=== PATIENT | female | born 1985 | race Caucasian/White ===

== ENCOUNTER 2019-09-19 17:33 | Emergency (ER) | payer OTHER, SELFPAY ==
[2019-09-19 17:35] VITALS: BP 122/73; PULSE 73; RESP 18; TEMP 36.4; O2SAT 96; BMI 31.8
[2019-09-19] MEDS: proMETHazine 25 MG/ML Syringe 12.5 MG IV (18:41)
[2019-09-19] MEDS: 0.9% Normal Saline 1,000 ML 1000 ML IV (18:41)
[2019-09-19] MEDS: Famotidine 200 MG/20 ML MDV 20 MG in 0.9% Normal Saline (Pres. free 8 ML 300 MG IV (18:41)
[2019-09-19 18:43] LABS: Absolute Lymphocyte Count 1.19 X10^3/uL (0.83-4.51); Absolute Neutrophil Count 14.9 X10^3/uL (2.0-7.7); Basophil# 0.03 X10^3/uL; Basophil% 0.2 % (0-1); Eosinophil# 0.02 X10^3/uL; Eosinophils% 0.1 % (0-5); Hematocrit 39.8 % (37-47); Hemoglobin 13.2 g/dL (12.0-15.0); Lymphocyte # 1.19 X10^3/ul (4.0); Lymphocyte % 7.2 % (19-41); Mean Corp Hgb Conc 33.2 g/dL (32-36); Mean Corpuscular Hgb 28.7 pg (27.0-32.0); Mean Corpuscular Volume 86.5 fL (81-99); Mean Platelet Vol. 10.9 fl (6.2-12.0); Monocyte# 0.35 X10^3/uL; Monocyte% 2.1 % (0-10); NRBC Flagged by Analyzer 0 % (0-5); Neutrophil # 14.94 X10^3/uL (2.7-7.7); Platelet Count 220 K/mm3 (150-450); RBC Distribution Width CV 13.1 % (11.6-14.6); RBC Distribution Width SD 40.9 fl (35.1-43.9); White Blood Count 16.6 K/mm3 (4.4-11.0)
--- NOTE | 2019-09-19 18:47 | ED.VIS.GI ---
History of Present Illness Chief Complaint: Nausea/Vomiting Informant: Patient - Abdominal Pain/Flank Pain Onset: Today Context: Gradual Onset Timing: Continuous Quality: Burning Location: Epigastric Relieved by: Nothing - Nausea/Vomiting/Emesis GI Symptom: Nausea, Vomiting Onset: Today Quality: Nonbilious. Negative for: Blood streaks, Coffee ground, Hematemesis Severity: Severe - Diarrhea/Melena/Hematochezia GI Symptom: Negative for: Diarrhea, Melena, Hematochezia Associated Symptoms: Negative for: Dysuria, Frequency, Hematuria LMP: Narrative: Patient is a 33-year-old female with history of IBS presenting with nausea and vomiting. Patient is currently 15-1/2 weeks . She has had some nausea and mild vomiting throughout her but nothing this severe. She states morning when she woke up she felt very nauseous. She has vomited about 8 times. She states she is not throwing up every 30 minutes. She is not able to eat or drink anything. She feels that she is dehydrated. She does not have a cyst abdominal pain. She states she is been mildly constipated but this is normal for her as she has IBS. She denies any chest pain, shortness of breath or difficulty breathing. She denies any flulike illness. She denies any sick contacts. She is not having any vaginal bleeding, abnormal discharge or lower abdominal pain. Past Medical History - Allergies and Home Meds Allergies/Adverse Reactions: Allergies No Known Allergies Allergy (Verified 09/19/19 17:34) Primary Care Physician: Mary Rodriguez DO [STAFF PHYSICIAN] - Smoking Status: Never smoker Review of Systems General: Denies: Chills, Fever, Sweats Eyes: Denies: Visual changes - bilaterally, Diplopia ENT: Denies: Rhinorrhea, Sore throat Cardiovascular: Denies: Chest pain, Palpitations Respiratory: Denies: Dyspnea, Cough, Dyspnea on exertion Gastrointestinal: Reports: Nausea, Vomiting. Denies: Abdominal pain, Diarrhea, Melena, Hematochezia Genitourinary: Denies: Dysuria, Hematuria, Frequency Musculoskeletal: Denies: Back pain, Extremity Pain Skin: Denies: Rash, Wounds Neurological: Denies: Headache, Weakness, Numbness Physical Exam Vital Signs/Narrative: Vital Signs Temp Pulse Resp BP Pulse Ox 09/19/19 17:35 97.5 F L 73 18 122/73 H 96 Inital Vital Signs reviewed: Yes General: Well nourished, Well developed, No Acute Distress Head: Normocephalic, Atraumatic Eyes: Perrl, EOMI ENT: Moist mucous membranes, No rhinorrhea Neck: Supple, Nontender Cardiovascular: Regular rate, Regular rhythm, No murmurs Respiratory: No distress, CTA bilaterally, Chest nontender Abdomen: Soft, Nontender, Nondistended, Normal bowel sounds. Negative for: Guarding, Rebound tenderness Back: Nontender, Normal Inspection Extremities: Nontender, No edema Skin: Normal color, No rash Neurological: Alert, Oriented x3, Cranial nerves II-XII grossly intact, Normal Strength, Normal Sensation Psychological: Normal affect, Normal Mood Diagnostic/Tx/Re-eval Laboratory Data 09/19/19 09/19/19 09/19/19 18:10 18:10 19:47 WBC 16.6 H RBC 4.60 Hgb 13.2 Hct 39.8 MCV 86.5 MCH 28.7 MCHC 33.2 RDW Std Deviation 40.9 RDW Coeff of Thompson 13.1 Plt Count 220 MPV 10.9 Immature Gran % (Auto) 0.400 Neut % (Auto) 90.0 H Lymph % (Auto) 7.2 L Levy % (Auto) 2.1 Eos % (Auto) 0.1 Baso % (Auto) 0.2 Absolute Neuts (auto) 14.9 H Absolute Lymphs (auto) 1.19 Nucleated RBC % 0 Sodium 138 Potassium 4.1 Chloride 106 Carbon Dioxide 25.0 Anion Gap 7 BUN 9 Creatinine 0.70 Estim Creat Clear Calc 105.01 Est GFR (MDRD) Af Amer 123 Est GFR (MDRD) Non-Af 102 BUN/Creatinine Ratio 12.9 Glucose 98 Calcium 9.2 Total Bilirubin 0.40 AST 17 ALT 24 Alkaline Phosphatase 87 Total Protein 7.6 Albumin 3.3 Globulin 4.3 H Albumin/Globulin Ratio 0.8 L Lipase 105 Urine Color Yellow Urine Clarity Sl. Cloudy Urine pH 6.0 Ur Specific [place] 1.015 Urine Protein Negative Urine Glucose (UA) Normal Urine Ketones 150 H Urine Occult Blood Negative Urine Nitrite Positive H Urine Bilirubin Negative Urine Urobilinogen Normal Ur Leukocyte Esterase 25 H Urine RBC 0-5 SEEN Urine WBC 0-5 SEEN Ur Squamous Epith Cells 0 SEEN Urine Bacteria 2+ Urine Mucus 0 SEEN - Medical Decision Making Patient is 15 weeks and presenting with nausea and vomiting. She does not have abdominal pain. She appears nontoxic in no acute distress. Abdomen is soft and nontender. She does not have a gallbladder. I do not suspect appendicitis. I do not think abdominal imaging is indicated at this time. Patient symptoms seem to just come on today. She is otherwise well-appearing. CBC and BMP are largely unremarkable. She does have a mild leukocytosis but this might be reactive from her vomiting. Urinalysis does show 150 ketones. Patient is given a total of 2 L of IV fluid in the emergency room as well asIV Phenergan and Pepcid for her symptoms. On reevaluation she is feeling better. Patient is not have any urinary symptoms on repeat evaluation this is a specifically. Urinalysis does show bacteria as well as some contamination nitrates. Urine culture will be sent. Labs are reviewed again after patient is discharged. At this time I will call in a prescription for Keflex for presumed UTI. ED Disposition - Plan for ED Patient: Disposition: Home or Assisted Living Diagnosis: Dehydration, Nausea and vomiting during prior to 22 weeks gestation, UTI (urinary tract infection) Instructions: VOMITING (6y-Adult) Prescriptions: Cephalexin [Keflex] 500 mg PO Q12 #10 cap Transmission Status: Pending to [id number] proMETHazine suppository [Phenergan Suppository] 25 mg RECTAL Q6H PRN PRN #6 suppos. PRN Reason: Nausea Prescription Printed Ondansetron [Zofran Odt] 4 mg PO Q8H PRN PRN #12 tab PRN Reason: Nausea Prescription Printed Referrals: Mary Rodriguez DO [STAFF PHYSICIAN] -
[2019-09-19 18:55] LABS: ALB/GLOB Ratio 0.8 RATIO (0.9-2.4); AST(SGOT) 17 U/L (15-37); Alanine Aminotransfer ALT/SGPT 24 U/L (13-56); Albumin, Serum 3.3 g/dL (3.2-5.0); Alkaline Phosphatase 87 U/L (45-117); Anion Gap 7 (5-15); BUN 9 mg/dL (7-18); BUN/Creat Ratio 12.9 RATIO (10-20); Calcium,Total 9.2 mg/dL (8.5-10.1); Chloride 106 mmol/L (98-107); EST Glomerular Filtration Rate 102 mL/min (>60); Est Glom Filt Rate - Afr Amer 123 mL/min (>60); Estimated Creatinine Clearance 105.01 ml/min; Globulin 4.3 g/dL (2.2-4.2); Glucose 98 mg/dL (74-106); Lipase 105 U/L (73-393); Potassium 4.1 mmol/L (3.5-5.1); Protein, Total 7.6 g/dL (6.4-8.2); Sodium Level 138 mmol/L (136-145)
[2019-09-19 19:53] LABS: Mucous, Urine 0 SEEN /hpf (<or=2+); Squamous Epithelial Cells - UA 0 SEEN /hpf (5-10)
[2019-09-19 19:54] LABS: Color, Urine Yellow (Yellow); Glucose, Dipstick Normal (Normal); Leukocyte Esterase-Dipstick 25 /ul (Negative); Nitrite-Dipstick Positive (Negative); Occult Blood-Urine Negative /ul (Negative); Protein-Dipstick Negative (Negative); Specific Gravity, Urine 1.015 (1.002-1.030); Urine Bilirubin Dipstick Negative (Negative); Urine Clarity Sl. Cloudy (Clear); Urine Urobilinogen Normal (Normal)
[2019-09-19 19:56] LABS: Ketone-Dipstick 150 mg/dl (Negative)
[2019-09-19 20:00] LABS: Bacteria 2+ /hpf (None Seen); Red Blood Cells-Urine 0-5 SEEN /hpf (0-5); White Blood Cells 0-5 SEEN /hpf (0-5)
[2019-09-19] MEDS: 0.9% Normal Saline 1,000 ML 999 ML IV (20:20)
[2019-09-19 20:36] VITALS: BP 112/66; PULSE 55; O2SAT 100
[2019-09-19 21:44] VITALS: BP 107/64; PULSE 83; RESP 16; O2SAT 99
== END 2019-09-19 21:45 | disposition home or self-care (01) ==
PROVIDERS: Emergency Provider Emergency Medicine
DX: O21.1 Hyperemesis gravidarum with metabolic disturbance (principal); O23.42 Unspecified infection of urinary tract in pregnancy, second trimester; B96.89 Other specified bacterial agents as the cause of diseases classified elsewhere; Z3A.15 15 weeks gestation of pregnancy
CPT/HCPCS: 80053; 81001; 83690; 85025; 87086; 87088; 96361; 96374; 96375; 99283; J7030; A4216; J3490

== ENCOUNTER 2020-02-06 10:40 | Outpatient (CLI) | payer OTHER, SELFPAY ==
[2020-02-06 11:00] VITALS: BMI 39.8
[2020-02-06 11:03] VITALS: BP 108/71; PULSE 76
[2020-02-06 11:04] VITALS: BP 108/71; PULSE 81; TEMP 37.1; O2SAT 97
[2020-02-06 13:16] LABS: Hematocrit 37.2 % (37-47); Hemoglobin 12.4 g/dL (12.0-15.0); Mean Corp Hgb Conc 33.3 g/dL (32-36); Mean Corpuscular Hgb 30.2 pg (27.0-32.0); Mean Corpuscular Volume 90.7 fL (81-99); Mean Platelet Vol. 10.4 fl (6.2-12.0); Platelet Count 203 K/mm3 (150-450); RBC Distribution Width CV 13.2 % (11.6-14.6); RBC Distribution Width SD 43.6 fl (35.1-43.9); White Blood Count 15.1 K/mm3 (4.4-11.0)
[2020-02-06 13:38] LABS: Fibrinogen 650 mg/dl (203-444)
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
== END 2020-02-06 14:45 | disposition home or self-care (01) ==
LOC: WPOUT 10:48 → WP 10:48
PROVIDERS: Referring Provider Obstetrics & Gynecology; Visit Provider Obstetrics & Gynecology
DX: Z04.1 Encounter for examination and observation following transport accident (principal)
CPT/HCPCS: 36415; 59025; 59050; 85027; 85384; 99218; G0378

== ENCOUNTER → 2020-02-28 10:19 | Outpatient (CLI) | payer OTHER, SELFPAY ==
[2020-02-06 11:00] VITALS: BMI 39.8
== END ==
PROVIDERS: Referring Provider Obstetrics & Gynecology; Visit Provider Obstetrics & Gynecology
DX: Z11.59 Encounter for screening for other viral diseases (principal)
CPT/HCPCS: 87635; 94799; U0003

== ENCOUNTER 2020-03-04 13:00 | Inpatient (IN) | payer OTHER, SELFPAY ==
[2020-03-04 13:21] VITALS: BMI 40.1
[2020-03-04 14:08] LABS: Absolute Lymphocyte Count 1.82 X10^3/uL (0.83-4.51); Absolute Neutrophil Count 10.2 X10^3/uL (2.0-7.7); Basophil# 0.03 X10^3/uL; Basophil% 0.2 % (0-1); Eosinophil# 0.13 X10^3/uL; Hematocrit 35.7 % (37-47); Lymphocyte # 1.82 X10^3/ul (4.0); Lymphocyte % 14.1 % (19-41); Mean Corp Hgb Conc 33.6 g/dL (32-36); Mean Corpuscular Hgb 30.1 pg (27.0-32.0); Mean Corpuscular Volume 89.5 fL (81-99); Mean Platelet Vol. 10.3 fl (6.2-12.0); Monocyte% 4.7 % (0-10); NRBC Flagged by Analyzer 0 % (0-5); Neutrophil # 10.21 X10^3/uL (2.7-7.7); Neutrophil % 79.3 % (47-70); Platelet Count 209 K/mm3 (150-450); RBC Distribution Width CV 13.1 % (11.6-14.6); RBC Distribution Width SD 42.7 fl (35.1-43.9); Red Blood Count 3.99 M/mm3 (4.2-5.4); White Blood Count 12.9 K/mm3 (4.4-11.0)
[2020-03-04] MEDS: Lactated Ringers 1,000 ML 50 ML IV ×2 (14:41→21:47)
[2020-03-04] MEDS: miSOPROStol 25 MCG TABLET VAGINAL ×2 (15:16→20:39)
[2020-03-04 16:06] VITALS: BP 122/75; TEMP 36.3
[2020-03-04 16:07] VITALS: PULSE 67; O2SAT 99
[2020-03-04 19:24] VITALS: BP 122/81; PULSE 78
[2020-03-04 20:53] VITALS: TEMP 36.6
[2020-03-04 20:54] VITALS: BP 125/75; PULSE 78
[2020-03-05] VITALS (59 sets, daily range): BP systolic 107–166; BP diastolic 55–88; PULSE 51–127; TEMP 36.2–37.3; O2SAT 82–100
[2020-03-05] MEDS: miSOPROStol 25 MCG TABLET VAGINAL (00:49)
[2020-03-05] MEDS: Lactated Ringers 500 ML 999 ML IV ×4 (06:50→15:15)
[2020-03-05] MEDS: Oxytocin 30 units/NS 500 ml 30 UNITS/500 ML IV.SOLN IV (07:27)
[2020-03-05] MEDS: 0.9% Normal Saline Single 100 ML IV.SOLN. IY (08:24)
--- NOTE | 2020-03-05 08:35 | HP.PCM_ITS ---
- Problem List (1) Advanced maternal age (AMA) in Status: Acute (2) Positive GBS test Status: Acute (3) History of anxiety Status: Acute (4) History of depression Status: Acute (5) History of asthma Status: Acute (6) History of ITP Status: Acute (7) History of loop electrical excision procedure (LEEP) Status: Acute (8) Raynauds disease Status: Acute History Date of Admission: 03/04/20 Final RADHA: 03/08/20 Gestational age: 39 Weeks and 4 Days History of this : This is a 34 year-old, G [1], P [0], at 39 weeks gestational age. Presented to office yesterday for routine visit and NST. Non reactive strip and decision for induction of labor. complicated by AMA. Cytotec throughout the night for cervical ripening. Resting in bed and comfortable. Mild cramping. at bedside. Allergies No Known Allergies Allergy (Verified 02/06/20 10:56) Home Medications: Home Medications Cholecalciferol (Vitamin D3) [Vitamin D3] 5,000 mg PO DAILY 02/06/20 Doxylamine Succinate [Nighttime Sleep-Aid] 25 mg PO DAILY 02/06/20 Mecobalamin [B-12] 5,000 mcg PO DAILY 02/06/20 Dha mg PO DAILY 03/04/20 Smoking Status: Never smoker Alcohol: None Substance Use Type: Sleep Aides Number of Fetus(es): 1 NST - FHR Rate Baby A Baseline: 135 Variability:: Minimal Accelerations:: None Decelerations:: None FHR Category:: Category II Uterine Activity:: Irregular History Past Pregnancies: Past Pregnancies Delivery Date Name GA/ Weeks Outcome Route Wt Infant Sex Labor Length Anesthesia Delivery Location Provider FOB Labs: Mom's Problem List Problem Status Onset Code Advanced maternal age (AMA) in Acute Positive GBS test Acute B95.1 History of anxiety Acute Z86.59 History of depression Acute Z86.59 History of asthma Acute Z87.09 History of ITP Acute Z86.2 History of loop electrical excision procedure (LEEP) Acute Z98.890 Raynauds disease Acute I73.00 Mom's Labs & Results 03/04/20 03/04/20 13:45 13:45 WBC 12.9 H RBC 3.99 L Hgb 12.0 Hct 35.7 L MCV 89.5 MCH 30.1 MCHC 33.6 RDW Std Deviation 42.7 RDW Coeff of Thompson 13.1 Plt Count 209 MPV 10.3 Immature Gran % (Auto) 0.700 Neut % (Auto) 79.3 H Lymph % (Auto) 14.1 L [place] % (Auto) 4.7 Eos % (Auto) 1.0 Baso % (Auto) 0.2 Absolute Neuts (auto) 10.2 H Absolute Lymphs (auto) 1.82 Nucleated RBC % 0 Blood Type A POSITIVE Antibody Screen NEGATIVE Course Did the patient receive Yes care? Labs Blood Type: A RH: POSITIVE RPR/VDRL/Syphilis Nonreactive Rubella status Immune HbSAg Negative Date Done: 08/15/19 Chlamydia Negative Gonorrhea Negative HIV/AIDS Non-Reactive Group B Strep: Positive Current Obstetrical History Gestational Diabetes No Incompetent Cervix No Infertility No IUGR No Macrosomia No Hypertension/Pre-eclampsia No Placenta Previa/Abruption No PTL/PROM No Uterine anomaly No Oligohydramnios No Polyhydramnios No Multiple gestation No Past Medical History Asthma Yes: uses inh with exercise Diabetes No Hypertension No Heart disease No Mitral valve prolapse No Neurologic/Seizure disorder/ Yes: hx of migraines Migraines Kidney disease No Liver disease No Varicosities No Clotting disorders/Hx of DVT Yes: hx of itp as child Thyroid Dysfunction No Other medical diseases No Psychiatric disorders No Major trauma No Abnormal PAP smear Yes: hx of hpv Sleep apnea No Mammogram in the last 2 years No Social History Marital Status: Alleged father Hector Hx Smoking No Smoking Status Never smoker Substance Use Type Sleep Aides What date/time did you last night time sleep aid use any of the above? Have you had any previous 0 inpatient or outpatient treatment Expected Infant Delivery Method: Spontaneous Vaginal Review of Systems Constitutional: Denies: Chills, Fever, Weight Change HEENT: Denies: Head Aches, Sinus Congestion, Sinus Drainage Cardiovascular: Denies: Chest Pain, Palpitations Respiratory: Denies: Cough, Shortness of breath at rest, Sputum production Gastrointestinal: Denies: Abdominal Pain, Nausea, Vomiting Genitourinary: Denies: Dysuria Musculoskeletal: Denies: Joint Pain, Joint Tenderness Skin: Denies: Rash, Wounds Neurological: Denies: Numbness, Tingling, Focal weakness Psychiatric: Denies: Anxiety, Depression, Homicidal Ideations, Suicidal Ideations Hematologic/ Lymphatic: Denies: Easy Bruising, Easy Bleeding Physical Exam Vitals: Vital Signs Temp Pulse BP Pulse Ox 98.6 F 55 L 132/77 H 98 03/05/20 07:16 03/05/20 08:30 03/05/20 08:30 03/05/20 07:16 General: Alert, Oriented x3, Cooperative HEENT: Atraumatic, Normocephalic Cardiovascular: Regular rate, Regular Rhythm, No murmurs Lungs: Clear to auscultation, Normal air movement, No rhonchi, No wheeze Abdomen: Bowel Sounds Present, Gravid Extremities:: No edema Neurological: Deep Tendon Reflexes 2+/4 and Symmetrical. Negative for: Clonus APPLICATION CONSULTANT: Normal external genitalia Estimated gestational size: Appropriate for gestational size Presentation: Cephalic Cervix Dilation (cm): 1 - hernandez bulb inserted into cervix without difficulty. Patient tolerated well. Station: -2 Effacement (%): 50 Assessment/Plan All Active Problems Advanced maternal age (AMA) in (Acute) Positive GBS test (Acute) History of anxiety (Acute) History of depression (Acute) History of asthma (Acute) History of ITP (Acute) History of loop electrical excision procedure (LEEP) (Acute) Raynauds disease (Acute) This is a 34 year-old, G [1], P [0], at 39 weeks gestational age. A: Induction of Labor AMA Category 2 FHT P: 1) Admit to labor and delivery 2) Cytotec for cervical ripening then hernandez with Pitocin started. 3) IV labs, EFM, TOCO 4) Requesting epidural for pain management 5) collaborative physician and updated on patient status 6) COVID test negative 7) GBS positive-IV prophylaxis started 8) Declines LARC immediate PP.
[2020-03-05] MEDS: Lactated Ringers 1,000 ML 50 ML IV (10:47)
[2020-03-05] MEDS: fentaNYL-bupivacaine (epidural) 100 ML BAG EPIDURAL ×2 (14:11→18:23)
--- NOTE | 2020-03-05 14:39 | PCM.PN.OB ---
Patient Problems: Active and Suspected Problems Advanced maternal age (AMA) in (Acute) Positive GBS test (Acute) History of anxiety (Acute) History of depression (Acute) History of asthma (Acute) History of ITP (Acute) History of loop electrical excision procedure (LEEP) (Acute) Raynauds disease (Acute) Subjective: Resting in bed on left side, comfortable with epidural. Objective: FHT 135, moderate variability, accels TOCO: Every 2-4 minutes, moderate Cervix: 5cm/70%/-1 IBOW AROM for moderate amount of clear fluid, patient tolerated well. - Physical Exam Vitals/I&O's: Vital Signs Temp Pulse BP Pulse Ox 98.4 F 67 108/55 L 95 03/05/20 13:41 03/05/20 14:27 03/05/20 14:26 03/05/20 14:27 Weight: 248 lb 6 oz Body Mass Index (BMI) 40.1 Intake and Output for Last 24 Hours 03/03/20 03/04/20 03/05/20 23:59 23:59 23:59 Intake Total 355 / 355 2980.06 / 2980.06 Output Total 200 / 200 Balance 155 / 155 2980.06 / 2980.06 Laboratory Results 03/04/20 13:45: Blood Type A POSITIVE, Antibody Screen NEGATIVE Current Medications Acetaminophen (Tylenol) 325 - 650 mg PO Q4H PRN PRN PRN Reason: Pain Score 1-3/10 Al Hydroxide/Mg Hydroxide (Mylanta Ii) 15 - 30 ml PO Q4H PRN PRN PRN Reason: INDIGESTION Citric Acid/Sodium Citrate (Bicitra) 30 ml PO X1 PRN PRN Reason: Section Ephedrine Sulfate () 10 mg IV Q10M PRN PRN Reason: hypotension Ephedrine Sulfate () 10 mg IM Q30M PRN PRN Reason: hypotension Fentanyl Citrate (Sublimaze (100mcg Ampule)) 25 - 50 mcg IV Q2H PRN PRN PRN Reason: Pain Score 4-10/10 Fentanyl/Bupivacaine/Sodium Chlor () 0 ml EPIDURAL UD JANE; Protocol Lactated Ringer's () 500 mls @ 999 mls/hr IV .Q31M PRN PRN Reason: Epidural Last Admin: 03/05/20 13:15 Dose: 999 mls/hr Documented by: Lactated Ringer's () 500 mls @ 999 mls/hr IV .Q31M PRN PRN Reason: Corrective Measures Last Infusion: 03/05/20 07:35 Dose: Infused Documented by: Lactated Ringer's () 1,000 mls @ 50 mls/hr IV .Q20H JANE Last Admin: 03/05/20 10:47 Dose: 50 mls/hr Documented by: Oxytocin/Sodium Chloride () 30 units in 500 mls @ 2 mls/hr IV .Q250H JANE Last Infusion: 03/05/20 13:15 Dose: 14 mls/hr Documented by: Penicillin G Potassium/Dextrose (Penicillin G Potassium) 3 mu in 50 mls @ 100 mls/hr IV Q4H JANE Last Infusion: 03/05/20 13:32 Dose: Infused Documented by: Naloxone HCl 4 mg/ Dextrose 504 mls @ 0 mls/hr IV .Q0M PRN; Protocol PRN Reason: To maintain Resp. rate >10 Nalbuphine HCl (Nubain) 5 mg IV Q3H PRN PRN PRN Reason: ITCHING Naloxone HCl (Narcan) 0.02 mg IV Q1M PRN PRN Reason: RR< 10 AND PT UNRESPONSIVE Ondansetron HCl (Zofran) 4 mg IV Q4H PRN PRN PRN Reason: NAUSEA Prochlorperazine Edisylate (Compazine Iv) 10 mg IV Q6H PRN PRN PRN Reason: NAUSEA Sodium Chloride () 10 - 40 ml IV X1 PRN PRN Reason: SALINE FLUSH Medical Necessity - Tobacco Use Smoking Status: Never smoker Assessment/Plan All Active Problems Advanced maternal age (AMA) in (Acute) Positive GBS test (Acute) History of anxiety (Acute) History of depression (Acute) History of asthma (Acute) History of ITP (Acute) History of loop electrical excision procedure (LEEP) (Acute) Raynauds disease (Acute) A:Induction of labor, active labor Category 1 FHT P: 1) Continue with IOL and pitocin 2) Epidural for pain management. 3) Dr.James maza physician and notified of patient status.
[2020-03-05] MEDS: Lactated Ringers 1,000 ML 200 ML IV ×2 (16:27→19:54)
[2020-03-05] MEDS: Ondansetron 4 MG/2 ML Vial IV ×2 (19:32→23:54)
[2020-03-05] MEDS: Oxytocin 30 units/NS 500 ml 30 UNITS/500 ML IV.SOLN 334 UNITS IV (21:26)
--- NOTE | 2020-03-05 21:54 | PCM.OPRPT ---
Problem List (1) Advanced maternal age (AMA) in Status: Acute (2) Positive GBS test Status: Acute (3) History of anxiety Status: Acute (4) History of depression Status: Acute (5) History of asthma Status: Acute (6) History of ITP Status: Acute (7) History of loop electrical excision procedure (LEEP) Status: Acute (8) Raynauds disease Status: Acute (9) Vaginal delivery Status: Acute (10) Second degree perineal laceration during delivery Status: Acute Vaginal Delivery Maternal Presentation: Active Labor Method of Induction: Pitocin, Pink Bulb, Cytotec Medical Reason for Induction: - - Advanced Maternal Age Amniotic Membrane Rupture Type: Artificial Amniotic Fluid Description: Clear Final RADHA: 03/12/20 Gestational age: 39 Weeks and 0 Days Date of Procedure: 03/05/20 Pre-Operative Diagnosis: Induction of labor Post-Operative Diagnosis: Vaginal delivery Surgery/ Procedure Performed: Spontaneous Vaginal Delivery Type of Anesthesia: Epidural Description of Procedure: Progressed to complete with urge to push, epidural in place and comfortable. heart tones down to 85 and back up to low 100s. Strong maternal pushing effort and +4 station and . of viable male over second degree perineal laceration. APGARS 8,9. head delivered with body forthcoming, cord around the neck x 1, delivered through. placed on maternal abdomen, mouth and nares suctioned for secretions and stimulated, strong cry, good tone and color. Pitocin started for active 3rd stage management. Cord clamped and cut after pulsations ceased by father of baby. Placenta delivered intact with 3 vessel cord via tariq. Perineum inspected and revealed 2nd degree perineal laceration. Laceration repaired with 3.0 vicryl and under epidural analgesia, well approximated and hemostasis achieved. Fundus firm and EBL 400ml. Mom and baby stable, family bonding well. Planning to breastfeed. notified of patient status. Presentation: Vertex Placental Delivery Description: Spontaneous Placenta Disposition: [facility] Cord Vessel Description: 3 Vessels Cord Entanglement: Around neck x 1, loose Estimated Blood Loss: 400 ml A gender: Male (1 minute): 8 (5 minute): 9 Episiotomy Description: None Laceration: 2nd degree Medications given after delivery: IV Pitocin Complications: None
[2020-03-05] MEDS: 0.9% Saline Lock 10 ML Syringe IV (23:54)
[2020-03-06] MEDS: Ibuprofen 600 MG Tablet PO ×4 (02:35→23:49)
[2020-03-06 03:50] VITALS: BP 114/55; PULSE 60; RESP 14; TEMP 36.2
[2020-03-06 06:09] LABS: Hematocrit 31.2 % (37-47); Hemoglobin 10.5 g/dL (12.0-15.0); Mean Corp Hgb Conc 33.7 g/dL (32-36); Mean Corpuscular Hgb 30.1 pg (27.0-32.0); Mean Corpuscular Volume 89.4 fL (81-99); Mean Platelet Vol. 10.6 fl (6.2-12.0); Platelet Count 180 K/mm3 (150-450); RBC Distribution Width CV 13.1 % (11.6-14.6); RBC Distribution Width SD 42.6 fl (35.1-43.9); Red Blood Count 3.49 M/mm3 (4.2-5.4); White Blood Count 19.9 K/mm3 (4.4-11.0)
[2020-03-06] MEDS: Acetaminophen 500 MG Tablet 1000 MG PO ×2 (06:32→15:43)
[2020-03-06 08:10] VITALS: BP 109/58; PULSE 72; RESP 14; TEMP 36.6
--- NOTE | 2020-03-06 08:59 | PCM.PN.OB ---
Patient Problems: Active and Suspected Problems Advanced maternal age (AMA) in (Acute) Positive GBS test (Acute) History of anxiety (Acute) History of depression (Acute) History of asthma (Acute) History of ITP (Acute) History of loop electrical excision procedure (LEEP) (Acute) Raynauds disease (Acute) Vaginal delivery (Acute) Second degree perineal laceration during delivery (Acute) Subjective: Pain well controlled. Average lochia. - Physical Exam Vitals/I&O's: Vital Signs Temp Pulse Resp BP Pulse Ox 97.9 F 72 14 109/58 L 97 03/06/20 08:10 03/06/20 08:10 03/06/20 08:10 03/06/20 08:10 03/05/20 23:38 Oxygen Delivery Method Room Air Weight: 112.661 kg Body Mass Index (BMI) 40.1 Intake and Output for Last 24 Hours 03/04/20 03/05/20 03/06/20 23:59 23:59 23:59 Intake Total 355 / 355 6281.16 / 6281.16 Output Total 200 / 200 350 / 350 900 / 900 Balance 155 / 155 5931.16 / 5931.16 -900 / -900 General: Alert, Cooperative, No apparent distress Laboratory Results 03/06/20 05:45: WBC 19.9 H, RBC 3.49 L, Hgb 10.5 L, Hct 31.2 L, MCV 89.4, MCH 30.1, MCHC 33.7, RDW Std Deviation 42.6, RDW Coeff of Thompson 13.1, Plt Count 180, MPV 10.6 Current Medications Acetaminophen (Tylenol) 1,000 mg PO Q8H PRN PRN PRN Reason: Pain Score 1-310 Last Admin: 03/06/20 06:32 Dose: 1,000 mg Documented by: Bisacodyl (Dulcolax) 10 mg RECTAL UD PRN PRN Reason: If no BM Dibucaine (Dibucaine) 1 applic TOPICAL TID PRN PRN; Protocol PRN Reason: Discomfort Hydrocortisone (Hytone) 1 applic TOPICAL TID PRN PRN; Protocol PRN Reason: Discomfort Ibuprofen (Motrin) 600 mg PO Q6H PRN PRN PRN Reason: Pain Score 1-310 Last Admin: 03/06/20 02:35 Dose: 600 mg Documented by: Methylergonovine Maleate (Methergine) 0.2 mg IM X1 PRN PRN Reason: Excess bleeding/uterine atony Ondansetron HCl (Zofran) 4 mg IV Q4H PRN PRN PRN Reason: Nausea Last Admin: 03/05/20 23:54 Dose: 4 mg Documented by: Senna/Docusate Sodium (Senokot-S, Breonna-Colace) 1 - 2 tablet PO DAILY PRN PRN PRN Reason: Constipation Simethicone (Mylicon) 80 mg PO PCHS PRN PRN Reason: Indigestion/Stomach pain Sodium Chloride () 5 - 15 ml IV UD PRN PRN Reason: SALINE FLUSH Last Admin: 03/05/20 23:54 Dose: 10 ml Documented by: Medical Necessity - Tobacco Use Smoking Status: Never smoker Assessment/Plan All Active Problems Advanced maternal age (AMA) in (Acute) Positive GBS test (Acute) History of anxiety (Acute) History of depression (Acute) History of asthma (Acute) History of ITP (Acute) History of loop electrical excision procedure (LEEP) (Acute) Raynauds disease (Acute) Vaginal delivery (Acute) Second degree perineal laceration during delivery (Acute) day #1 status post vaginal delivery. and patient are doing well. breast-feeding and doing well. Routine care. Likely discharge home tomorrow.
[2020-03-06] MEDS: Senna/Docusate Sodium 1 Tablet PO (11:22)
[2020-03-06 12:55] VITALS: BP 111/52; PULSE 68; RESP 14; TEMP 36.5
[2020-03-06 15:40] VITALS: BP 114/62; PULSE 61; RESP 14; TEMP 36.3
[2020-03-06 19:50] VITALS: BP 111/66; PULSE 86; RESP 18; TEMP 36.4; O2SAT 98
[2020-03-07] MEDS: Acetaminophen 500 MG Tablet 1000 MG PO ×2 (01:08→09:19)
[2020-03-07 01:25] VITALS: BP 115/55; PULSE 80; RESP 18; TEMP 36.7
[2020-03-07] MEDS: Dibucaine 30 GM Tube 1 APPLIC TOPICAL (01:30)
[2020-03-07] MEDS: Ibuprofen 600 MG Tablet PO ×2 (05:58→14:35)
[2020-03-07] MEDS: Senna/Docusate Sodium 1 Tablet PO (06:02)
[2020-03-07 09:48] VITALS: BP 111/67; PULSE 69; RESP 18; TEMP 36.7
--- NOTE | 2020-03-07 10:27 | PCM.PN.OB ---
Patient Problems: Active and Suspected Problems Advanced maternal age (AMA) in (Acute) Positive GBS test (Acute) History of anxiety (Acute) History of depression (Acute) History of asthma (Acute) History of ITP (Acute) History of loop electrical excision procedure (LEEP) (Acute) Raynauds disease (Acute) Vaginal delivery (Acute) Second degree perineal laceration during delivery (Acute) Subjective: Patient seen at bedside. Stated feeling good but tired. Breast feeding is going well. Ambulating in room. Lochia decreasing. Pain is controlled with Motrin. Keeping ice on perineum. - Physical Exam Vitals/I&O's: Vital Signs Temp Pulse Resp BP Pulse Ox 98.1 F 69 18 111/67 98 03/07/20 09:48 03/07/20 09:48 03/07/20 09:48 03/07/20 09:48 03/06/20 19:50 Oxygen Delivery Method Room Air Weight: 248 lb 6 oz Body Mass Index (BMI) 40.1 Intake and Output for Last 24 Hours 03/05/20 03/06/20 03/07/20 23:59 23:59 23:59 Intake Total 6281.16 / 6281.16 Output Total 350 / 350 900 / 900 Balance 5931.16 / 5931.16 -900 / -900 General: Alert, Oriented x3, Cooperative HEENT: Atraumatic Lungs: Normal air movement Cardiovascular: Regular rate Abdomen: Soft, Non Tender, Passing Flatus Skin: No rashes, No breakdown Neurological: Cranial nerves II-XII grossly intact Psych/Mental Status: Normal Affect Current Medications Acetaminophen (Tylenol) 1,000 mg PO Q8H PRN PRN PRN Reason: Pain Score 1-3/10 Last Admin: 03/07/20 09:19 Dose: 1,000 mg Documented by: Bisacodyl (Dulcolax) 10 mg RECTAL UD PRN PRN Reason: If no BM Dibucaine (Dibucaine) 1 applic TOPICAL TID PRN PRN; Protocol PRN Reason: Discomfort Last Admin: 03/07/20 01:30 Dose: 1 applicatio Documented by: Hydrocortisone (Hytone) 1 applic TOPICAL TID PRN PRN; Protocol PRN Reason: Discomfort Ibuprofen (Motrin) 600 mg PO Q6H PRN PRN PRN Reason: Pain Score 1-3/10 Last Admin: 03/07/20 05:58 Dose: 600 mg Documented by: Methylergonovine Maleate (Methergine) 0.2 mg IM X1 PRN PRN Reason: Excess bleeding/uterine atony Ondansetron HCl (Zofran) 4 mg IV Q4H PRN PRN PRN Reason: Nausea Last Admin: 03/05/20 23:54 Dose: 4 mg Documented by: Senna/Docusate Sodium (Senokot-S, Breonna-Colace) 1 - 2 tablet PO DAILY PRN PRN PRN Reason: Constipation Last Admin: 03/07/20 06:02 Dose: 2 tablet Documented by: Simethicone (Mylicon) 80 mg PO PCHS PRN PRN Reason: Indigestion/Stomach pain Sodium Chloride () 5 - 15 ml IV UD PRN PRN Reason: SALINE FLUSH Last Admin: 03/05/20 23:54 Dose: 10 ml Documented by: Medical Necessity - Tobacco Use Smoking Status: Never smoker Assessment/Plan All Active Problems Advanced maternal age (AMA) in (Acute) Positive GBS test (Acute) History of anxiety (Acute) History of depression (Acute) History of asthma (Acute) History of ITP (Acute) History of loop electrical excision procedure (LEEP) (Acute) Raynauds disease (Acute) Vaginal delivery (Acute) Second degree perineal laceration during delivery (Acute) A/P S/P - 2nd degree laceration Pain controlled Discharge home
--- NOTE | 2020-03-07 10:32 | DCINST_ITS ---
Discharge Diet: No Restrictions Discharge Activity: Return to Normal Activity May resume sexual activity in: 6-8 weeks Additional Instructions: If you experience any of the following, contact your healthcare provider. * Bleeding that soaks a pad every hour for 2 hours * Fever 100.4 or higher * Unrelieved incision or abdominal pain * Swelling, redness, discharge or bleeding from your incision or episiotomy site * Your incision begins to separate * Problems urinating (including inability to urinate or burning while urinating). * Visual changes * Severe headache * Flu-like symptoms * Pain or redness in one of both of your breasts * Pain, warmth, tenderness or swelling in your legs, especially the calf area * Frequent nausea and vomiting * Symptoms of depression or anxiety If you experience any of the following, call 911 or go to the nearest Emergency Room. * Chest pain * Problems breathing * Seizure activity * Partial or complete paralysis of a body part, slurred speech, weakness or drooping of the face, or a sudden inability to walk or hold your balance Allergies/Adverse Reactions: Allergies No Known Allergies Allergy (Verified 02/06/20 10:56) Medications to take at Discharge Cholecalciferol (Vitamin D3) [Vitamin D3] 5,000 mg PO DAILY 02/06/20 Doxylamine Succinate [Nighttime Sleep-Aid] 25 mg PO DAILY 02/06/20 Dha mg PO DAILY 03/04/20 Primary Care Physician: Care Physician,No Primary [Primary Care Provider] - Test Results: Test results from this visit will be discussed in further detail at your follow- up appointment, if applicable.
--- NOTE | 2020-03-07 10:32 | PCM.DCVAG ---
Discharge Diet: No Restrictions Discharge Activity: Return to Normal Activity May resume sexual activity in: 6-8 weeks Additional Instructions: If you experience any of the following, contact your healthcare provider. Bleeding that soaks a pad every hour for 2 hours Fever 100.4 or higher Unrelieved incision or abdominal pain Swelling, redness, discharge or bleeding from your incision or episiotomy site Your incision begins to separate Problems urinating (including inability to urinate or burning while urinating). Visual changes Severe headache Flu-like symptoms Pain or redness in one of both of your breasts Pain, warmth, tenderness or swelling in your legs, especially the calf area Frequent nausea and vomiting Symptoms of depression or anxiety If you experience any of the following, call 911 or go to the nearest Emergency Room. Chest pain Problems breathing Seizure activity Partial or complete paralysis of a body part, slurred speech, weakness or drooping of the face, or a sudden inability to walk or hold your balance Allergies/Adverse Reactions: Allergies No Known Allergies Allergy (Verified 02/06/20 10:56) Medications to take at Discharge Cholecalciferol (Vitamin D3) [Vitamin D3] 5,000 mg PO DAILY 02/06/20 Doxylamine Succinate [Nighttime Sleep-Aid] 25 mg PO DAILY 02/06/20 Dha mg PO DAILY 03/04/20 Primary Care Physician: Care Physician,No Primary [Primary Care Provider] - Test Results: Test results from this visit will be discussed in further detail at your follow-up appointment, if applicable.
[2020-03-07 15:15] VITALS: BP 138/68; PULSE 86; RESP 18; TEMP 36.8
== END 2020-03-07 13:15 | disposition home or self-care (01) | DRG 805 ==
PROVIDERS: Advanced Practice Midwife; Admitting Provider Obstetrics & Gynecology; Visit Provider Obstetrics & Gynecology
DX: O69.81X0 Labor and delivery complicated by cord around neck, without compression, not applicable or unspecified (principal); O99.42 Diseases of the circulatory system complicating childbirth; Z37.0 Single live birth; I73.00 Raynaud's syndrome without gangrene; O70.1 Second degree perineal laceration during delivery; O99.824 Streptococcus B carrier state complicating childbirth; O99.52 Diseases of the respiratory system complicating childbirth; J45.909 Unspecified asthma, uncomplicated; Z3A.39 39 weeks gestation of pregnancy; Z86.59 Personal history of other mental and behavioral disorders; Z86.2 Personal history of diseases of the blood and blood-forming organs and certain disorders involving the immune mechanism
CPT/HCPCS: 59025; 59050; 85025; 85027; 86850; 86900; 86901; 99218; J7120; A4216; G0378; J2405

== ENCOUNTER 2020-03-20 16:07 | Outpatient (CLI) | payer OTHER, SELFPAY | END 2020-03-20 17:44 | disposition home or self-care (01) | LOC: WPOUT 16:10 → WP 16:12 | PROVIDERS: Referring Provider Obstetrics & Gynecology; Visit Provider Obstetrics & Gynecology | DX: Z39.1 Encounter for care and examination of lactating mother (principal) | CPT/HCPCS: 96158; 96159 ==

== ENCOUNTER 2021-11-28 17:10 | Inpatient (IN) | payer OTHER, SELFPAY ==
[2021-11-28] VITALS (54 sets, daily range): BP systolic 108–142; BP diastolic 57–84; PULSE 51–90; TEMP 36–36.4; O2SAT 94–100; BMI 41.6
[2021-11-28] MEDS: Lactated Ringers 1,000 ML 50 ML IV (17:47)
[2021-11-28] MEDS: Lactated Ringers 500 ML 999 ML IV (18:00)
[2021-11-28 18:19] LABS: Absolute Lymphocyte Count 2.43 X10^3/uL (0.83-4.51); Absolute Neutrophil Count 10.3 X10^3/uL (2.0-7.7); Basophil# 0.02 X10^3/uL; Basophil% 0.1 % (0-1); Eosinophil# 0.08 X10^3/uL; Eosinophils% 0.6 % (0-5); Hematocrit 36.9 % (37-47); Hemoglobin 12.6 g/dL (12.0-15.0); Lymphocyte # 2.43 X10^3/ul (0.83-4.51); Lymphocyte % 17.9 % (19-41); Mean Corp Hgb Conc 34.1 g/dL (32-36); Mean Corpuscular Hgb 30.6 pg (27.0-32.0); Mean Corpuscular Volume 89.6 fL (81-99); Mean Platelet Vol. 11.2 fl (6.2-12.0); Monocyte# 0.73 X10^3/uL; Monocyte% 5.4 % (0-10); NRBC Flagged by Analyzer 0 % (0-5); Neutrophil # 10.26 X10^3/uL (2.7-7.7); Neutrophil % 75.4 % (47-70); Platelet Count 219 K/mm3 (150-450); RBC Distribution Width CV 13.7 % (11.6-14.6); RBC Distribution Width SD 44.9 fl (35.1-43.9); Red Blood Count 4.12 M/mm3 (4.2-5.4); White Blood Count 13.6 K/mm3 (4.4-11.0)
[2021-11-28] MEDS: fentaNYL-bupivacaine (epidural) 100 ML BAG EPIDURAL (18:35)
--- NOTE | 2021-11-28 20:23 | HP.PCM.OB_ITS ---
HPI - General General Date of Admission: 11/28/21 HPI Narrative MAYNOR FINNEGAN, is a 36 F at 38w5d who presents in labor with ctx's. Maternal Data Information RADHA Calculator 2 Estimated Delivery Date Method Current WG Current Estimate 12/07/21 Ultrasound #1 38w 5d [facility] PFS Medical History (Updated 11/28/21 @ 20:[address] Mary Rodriguez, DO) Depression Exercise-induced asthma Home Medications Cholecalciferol (Vitamin D3) [Vitamin D3] 5,000 mg PO DAILY 02/06/20 [History Last Taken 03/04/20 08:00] doxylamine succinate 25 mg PO DAILY 02/06/20 [History Last Taken 03/03/20] Dha 1 tab PO DAILY 03/04/20 [History Last Taken 03/04/20] Colace 1 tab PO/SL DAILY PRN 11/28/21 [History Last Taken Unknown] vitamin Y87-ftzkw acid 1 tab PO.IVFORM DAILY 11/28/21 [History Last Taken Unknown] vitamin B6-vitamin E-magnesium 1 tab PO.IVFORM DAILY 11/28/21 [History Last Taken Unknown] Allergy/AdvReac Type Severity Reaction Status Date / Time No Known Allergies Allergy Verified 02/06/20 10:56 Surgical History (Updated 11/28/21 @ 19:09 by María Elena Villa) H/O LEEP Social History Smoking Status: Never smoker History Elective abortions Hx Para 1 Spontaneous abortions Hx # Term Pregnancies Ectopic pregnancies Hx # Pregnancies Multiple births # of living children Vital Signs Vital Signs Vital Signs: 11/28/21 17:02 11/28/21 17:03 11/28/21 17:04 Temperature 97.2 F L Temperature Source Temporal Pulse Rate 72 72 Blood Pressure 137/84 H BP Systolic 137 BP Diastolic 84 Pulse Ox 98 94 11/28/21 18:26 11/28/21 18:31 11/28/21 18:34 Temperature Temperature Source Pulse Rate 73 62 57 L Blood Pressure 138/73 H BP Systolic 138 BP Diastolic 73 Pulse Ox 100 98 11/28/21 18:36 11/28/21 18:37 11/28/21 18:41 Temperature Temperature Source Pulse Rate 59 L 60 Blood Pressure 131/65 H BP Systolic 131 BP Diastolic 65 Pulse Ox 97 99 11/28/21 18:43 11/28/21 18:46 11/28/21 18:47 Temperature Temperature Source Pulse Rate 63 67 57 L Blood Pressure 117/75 111/66 BP Systolic 117 111 BP Diastolic 75 66 Pulse Ox 98 11/28/21 18:51 11/28/21 18:53 11/28/21 18:54 Temperature 97.6 F L Temperature Source Temporal Pulse Rate 67 69 Blood Pressure 116/60 BP Systolic 116 BP Diastolic 60 Pulse Ox 98 11/28/21 18:56 11/28/21 18:57 11/28/21 19:01 Temperature Temperature Source Pulse Rate 67 Blood Pressure 109/60 BP Systolic 109 BP Diastolic 60 Pulse Ox 97 98 11/28/21 19:02 11/28/21 19:06 11/28/21 19:07 Temperature Temperature Source Pulse Rate 67 68 Blood Pressure 108/59 L 115/62 BP Systolic 108 115 BP Diastolic 59 62 Pulse Ox 97 11/28/21 19:11 11/28/21 19:16 11/28/21 19:21 Temperature Temperature Source Pulse Rate 66 65 67 Blood Pressure BP Systolic BP Diastolic Pulse Ox 97 97 97 11/28/21 19:26 11/28/21 19:30 11/28/21 20:21 Temperature 97.3 F L Temperature Source Temporal Pulse Rate 67 90 Blood Pressure 121/59 H BP Systolic 121 BP Diastolic 59 Pulse Ox 98 Weight Weight: 258 lb Body Mass Index (BMI) 41.6 Labs Labs Labs: Blood Type A POSITIVE Antibody Screen NEGATIVE Hct 36.9 % (37-47) L Hgb 12.6 g/dL (12.0-15.0) Rhogam given: No Assessment & Plan (1) Advanced maternal age (AMA) in : (2) Positive GBS test: (3) 38 weeks gestation of : (4) Active labor at term: PLAN: Admit for routine intrapartum care. PCN for GBS pos. Epidural for pain control. Labs on admission. EFW expected to be < 3500 g and pelvis adequate. Anticipate vaginal delivery.
--- NOTE | 2021-11-28 21:25 | PCM.PN.BLA ---
Progress Note heart rate deceleration noted. At bedside to assess patient. Comfortable with epidural. Cvx 9.5/100/0 with BBOW and rupture for clear fluid with digital exam. Anticipate vaginal delivery. Category 1 tracing.
[2021-11-28] MEDS: Oxytocin 30 units/NS 500 ml 30 UNITS/500 ML IV.SOLN 334 UNITS IV (22:11)
--- NOTE | 2021-11-28 22:23 | PCM.OPRPT ---
Problems Associated Problem List Diagnoses (1) Active labor at term: (2) 38 weeks gestation of : (3) Advanced maternal age (AMA) in : (4) Positive GBS test: (5) Vaginal delivery: Report of Operation Date of Procedure: 11/28/21 Pre-Operative Diagnosis: 38 week gestation, single IUP, labor at term, GBS positive, AMA Post-Operative Diagnosis: As above Surgery/Procedure Performed:: Description of Surgical Findings:: Viable female delivered with Apgars of 8 and 9. Normal-appearing placenta with a three-vessel cord. First-degree vaginal laceration. Surgeon: Mary Rodriguez Type of Anesthesia: Epidural Special Medications: None Specimen's removed: Placenta Drains: Pink Estimated Blood Loss (mL): 100 Fluids Replaced: N/A Description of Procedure: The patient was complete and pushing. The head of the infant was delivered in right occiput anterior position. The anterior shoulder was delivered with gentle downward traction, followed by the posterior shoulder and body of the . A vigorous viable female infant was delivered without any excessive traction, and without any force or delay. The infant was placed on the maternal abdomen. The cord was clamped and cut after 60 second delay by FOB. The placenta was delivered intact with fundal massage. The placenta was noted to be normal-appearing with a three-vessel cord. The uterus was explored x1. A first-degree vaginal laceration was repaired with 3-0 Vicryl. Vaginal sweep was performed. Needle and sponge counts were correct. Grafts/Implants Used: None Complications None
[2021-11-29] VITALS (16 sets, daily range): BP systolic 99–135; BP diastolic 56–80; PULSE 52–87; RESP 16–18; TEMP 36.1–36.7; O2SAT 97–98
--- NOTE | 2021-11-29 07:20 | PCM.PN.OB ---
Subjective Subjective Pt is doing well. Pain is well controlled. Lochia is normal. She is resting and has no complaints. Objective Data Objective Data Vital Signs: Vital Signs Temp Pulse BP Pulse Ox 96.8 F L 70 102/56 L 98 11/28/21 23:08 11/29/21 02:58 11/29/21 02:58 11/29/21 00:27 Weight: 258 lb Body Mass Index (BMI) 41.6 Intake & Output: Intake and Output for Last 24 Hours 11/27/21 11/28/21 11/29/21 23:59 23:59 23:59 Intake Total 1418.40 / 1418.40 327.43 / 327.43 Output Total 400 / 400 Balance 1018.40 / 1018.40 327.43 / 327.43 Lab / Micro Data Result Diagrams: 11/28/21 17:47 Labs: Laboratory Results - last 24 hr 11/28/21 17:47: WBC 13.6 H, RBC 4.12 L, Hgb 12.6, Hct 36.9 L, MCV 89.6, MCH 30.6, MCHC 34.1, RDW Std Deviation 44.9 H, RDW Coeff of Thompson 13.7, Plt Count 219, MPV 11.2, Immature Gran % (Auto) 0.600, Neut % (Auto) 75.4 H, Lymph % (Auto) 17.9 L, [place] % (Auto) 5.4, Eos % (Auto) 0.6, Baso % (Auto) 0.1, Absolute Neuts (auto) 10.3 H, Absolute Lymphs (auto) 2.43, Nucleated RBC % 0 11/28/21 17:47: Blood Type A POSITIVE, Antibody Screen NEGATIVE Micro: Microbiology 11/28/21 17:47 Nasal Secretion SARS-CoV-2 Antigen (Rapid) - Final Physical Exam Const alert and no apparent distress Constitutional Narrative: Resting General Appearance: comfortable Assessment & Plan (1) Vaginal delivery: PLAN: Patient is day 1 from a vaginal delivery. She is doing well. Routine care. Anticipate discharge tomorrow. (2) Obstetric vaginal laceration with first degree perineal laceration: (3) History of depression: (4) History of anxiety:
[2021-11-29] MEDS: Acetaminophen 500 MG Tablet 1000 MG PO ×3 (08:23→23:13)
--- NOTE | 2021-11-29 11:38 | CASEMGMT ---
Social Work Labor and Delivery Unit Date/Time of referral: 11/28/21, 23:07 Referred by: Mary Rodriguez Date/Time of Intervention: 11/29/21, 11:15am Reason for Referral: hx anxiety and depression History obtained from: MOB and FOB Household composition: MOB, FOB, 21 month old boy, and now baby girl Jose. MOB and FOB have been together for 8 years Parent/guardian status: MOB and FOB are guardians of both children Medical history: MOB: depression, exercise induced asthma, IBS. Baby: Born 11/28/21 at 22:09, 2885 grams. Apgars 8 and 9 at 1 and 5 minutes. Educational Status: MOB, bachelors, works in [employer] at [employer]. FOB, two masters. FOB teaches at [employer]. Both plan to return to work Financial Status: No concerns Supplies: They have all needed supplies including crib, bassinet, car seats, clothing, diapers. MOB plans to breast feed but does have bottles if needed. Childcare/Caregivers: They are working on what the caregiver situation will be when they both return to work. Transportation: They have 2 cars. Programs/agencies involved: None Children Services/Legal issues: None Behavioral Health Issues: Substance use history: No issues for MOB or FOB. Mental Health History: FOB, no issues. MOB: History of depression and anxiety. MOB did do counseling at one time, 10 years ago. MOB tried meds for anxiety also at one time, but it was actually symptoms of IBS. MOB got back on her IBS meds and was fine after that. MOB is not sure if she had after the first child, said she cried a lot. Family/Social Stressors: None Support Systems: They report to have supportive family and friends, both families are in the area. depression and anxiety/shaken baby/safe sleeping/Help Me Grow/Counseling Resources/[facility] Resources: SW gave information and reviewed the information on all of these topics. SW pointed out in particular the information and warning signs about , and the 24 hour crisis hotline. SW encouraged MOB and FOB to review warning signs of and if MOB is having symptoms to reach out to their doctor, and seek counseling. MOB and FOB state understanding. Assessment: SW met w/ MOB and FOB, both appropriate and answered all questions. MOB while SW in room and appropriate w/baby. Plan: Baby to go home w/MOB and FOB at discharge. DO Cross
[2021-11-30 02:36] VITALS: BP 110/60; PULSE 60; RESP 18
[2021-11-30 02:37] VITALS: BP 110/60; PULSE 60
[2021-11-30 08:20] VITALS: BP 122/73; PULSE 69
[2021-11-30 08:25] VITALS: BP 122/73; PULSE 69; RESP 18; TEMP 36.3
--- NOTE | 2021-11-30 09:00 | PCM.PN.OB ---
Subjective Subjective Doing well this morning. Having some cramping that is controlled with Tylenol. Breast-feeding without complaints. Lochia normal. She is ambulating and voiding without difficulty. She is tolerating regular diet without nausea or vomiting. She desires to go home today. Objective Data Objective Data Vital Signs: Vital Signs Temp Pulse Resp BP Pulse Ox 97.3 F L 69 18 122/73 H 98 11/30/21 08:25 11/30/21 08:25 11/30/21 08:25 11/30/21 08:25 11/29/21 09:04 Oxygen Delivery Method Room Air Weight: 258 lb Body Mass Index (BMI) 41.6 Intake & Output: Intake and Output for Last 24 Hours 11/28/21 11/29/21 11/30/21 23:59 23:59 23:59 Intake Total 1418.40 / 1418.40 327.43 / 327.43 Output Total 400 / 400 Balance 1018.40 / 1018.40 327.43 / 327.43 Lab / Micro Data Result Diagrams: 11/28/21 17:47 Micro: Microbiology 11/28/21 17:47 Nasal Secretion SARS-CoV-2 Antigen (Rapid) - Final Physical Exam Const alert and no apparent distress General Appearance: comfortable HEENT normocephalic Resp normal respiratory effort GI soft to palpation Assessment & Plan (1) Vaginal delivery: PLAN: Patient is day 2 from a vaginal delivery. Doing well and meeting milestones for discharge. She desires to go home today. Discharge instructions reviewed. (2) Obstetric vaginal laceration with first degree perineal laceration:
--- NOTE | 2021-11-30 09:03 | PCM.DC ---
Discharge Instructions Diet Discharge Diet: No restrictions Activity Discharge Activity: May Drive (once you feel your core is strong enough) and May Shower May resume sexual activity in: 6 weeks Weight Bearing Status: Weight bearing as tolerated Lifting Restrictions: Nothing heavier than baby Dressing / Incision Call your doctor if you observe: Fever of 101 or Higher, Coldness, Increased Pain, Numbness or Tingling, Change in Color, Inability to urinate, Inability to have a bowel movement, Using more than 1 pad per hour, Shortness of breath, Dizziness, Fainting spells, Swelling in the ankles, Chest pain, Increased palpitations (irregular heartbeat), Calf discomfort and Uncontrolled pain Follow Up Care When: 1-2 weeks for early visit if you desire 6 weeks for visit Test Results: Test results from this visit will be discussed in further detail at your follow-up appointment, if applicable. Discharge Plan Admission Admit Date/Time: 11/28/21 17:10 Primary Reason for Your Visit: delivery Attending Provider: Mary Rodriguez Primary Care Provider: Care Physician,Aide Primary Instructions Patient Instructions: After a Vaginal Discharge Orders/Prescriptions Prescriptions: Continued Cholecalciferol (Vitamin D3) [Vitamin D3] 5,000 UNIT capsule 5,000 mg PO DAILY RF: 0 Dha 1 tab PO DAILY RF: 0 Colace 1 tab PO/SL DAILY PRN (Reason: Constipation) RF: 0 vitamin A50-yfwhx acid 1 tab PO.IVFORM DAILY RF: 0 vitamin B6-vitamin E-magnesium 1 tab PO.IVFORM DAILY RF: 0 Discontinued doxylamine succinate 25 mg tablet 25 mg PO DAILY RF: 0 Referrals / Follow Up: Care Physician,No Primary [Primary Care Provider] - Disposition Disposition (needs filled in before D/C Order can be placed): Home, Self Care
== END 2021-11-30 11:10 | disposition home or self-care (01) | DRG 807 ==
LOC: WPOUT 17:13 → WP 17:13
PROVIDERS: Admitting Provider Obstetrics & Gynecology; Referring Provider Obstetrics & Gynecology; Visit Provider Obstetrics & Gynecology
DX: O76 Abnormality in fetal heart rate and rhythm complicating labor and delivery (principal); Z37.0 Single live birth; O70.0 First degree perineal laceration during delivery; O99.824 Streptococcus B carrier state complicating childbirth; Z3A.38 38 weeks gestation of pregnancy
CPT/HCPCS: 59050; 85025; 86850; 86900; 86901; 87811; 99218; J7120; G0378

== ENCOUNTER 2022-05-21 08:09 | Day surgery (SDC) | payer OTHER, SELFPAY ==
--- NOTE | 2022-05-18 16:47 | PCM.HP.BLA ---
History and Physical Date of Admission: 05/21/22 HPI: The patient is a 36 year old female presenting for pre-operative visit. She is scheduled for laparoscopic bilateral salpingectomy, for sterilization on 05/21/22. Procedure discussed along with risks, benefits and complications. Other alternatives discussed for management. Consent form signed? Yes. ? ? PAST MEDICAL HISTORY PAST MEDICAL HISTORY Diagnosis Date ? Abnormal Pap smear of cervix ? ? ALLERGIC RHINITIS NOS 06/05/2005 ? Anal fissure and fistula ? ? Anemia ? ? anxiety/depression ? ? Asthma ? ? Blood dyscrasia ? ? ITP ? BRCA negative 12/20/2020 ? 12/20/20-Family history of ovarian and prostate cancer. BRCA negative on 07/29/15. Sushma Barbosa APRN.CNM ? Complication of anesthesia ? ? panic attack x 1 after coming out of general anesthesia ? Exercise induced asthma 06/05/2005 ? Family history of colon cancer 10/27/2021 ? Family history of uterine cancer 10/27/2021 ? 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 Irritable bowel syndrome ? ? ITP (idiopathic thrombocytopenic purpura) ? ? LGSIL (low grade squamous intraepithelial dysplasia) 04/25 ? referred for colposcopy ? Nausea and vomiting in 07/19/2019 ? 07/19/2019Patient is complaining of nausea in .Denies vomiting. Discussed dietary considerations. Advised patient to call/come in if she is unable to keep any food or fluids down in a 24-hour period.TKRN ? Raynaud phenomenon ? ? Raynaud's disease 07/20/2014 ? Unspecified constipation ? ? Constipation ? Vitamin D deficiency 04/2013 ? 26.6 recheck 04/2014 only 28 ? ? PAST SURGICAL HISTORY PAST SURGICAL HISTORY Procedure Laterality Date ? CHOLECYSTECTOMY ? ? ? COLPOSCOPY CERVIX UPPER/ADJACENT VAGINA ? 06/05/2014 ? Colposcopy Dr Stanley neg bx ? HYSTEROSCOPY WBX WWO D AND C ANDOR POLYPECTOMY ? 2016 ? OFFICE LEEP ? ? ? before 2009 unsure ? PAST SURGICAL HISTORY OF ? ? ? wisdom teeth ? PAST SURGICAL HISTORY OF Left ? ? tumor removed from leg ? PAST SURGICAL HISTORY OF ? 2008 ? jaw surgery ? SKIN BX, 1 LESION ? ? ? Tumor removed from back leg ? VAGINOSCOPY ? 04/2013 ? neg bx with Dr Buckner ? ? ? CURRENT MEDICATIONS Current Outpatient Medications Medication Sig Dispense Refill ? LOW-DOSE ASPIRIN ORAL Take 81 mg by mouth once daily. ? docusate sodium (COLACE ORAL) Take by mouth once daily. ? Magnesium Glycinate 100 mg tab Take 2 tablets by mouth once daily. ? ? ? albuterol sulfate (PROAIR RESPICLICK) 90 mcg/actuation aepb Inhale 2 Puffs as instructed every 4 hours as needed. 1 Inhaler 1 ? 25/iron fum/folic/dha (-1 ORAL) Take by mouth. With DHA ? cholecalciferol (VITAMIN D3) 5,000 unit tab Take 5,000 Units by mouth once daily. ? ? ? ASCORBIC ACID (VITAMIN C ORAL) Take by mouth as needed. ? CYANOCOBALAMIN, VITAMIN B-12, (VITAMIN B-12 ORAL) Take by mouth once daily. ? peg 3350-Electrolytes (GOLYTELY) 236-22.74-6.74 -5.86 gram suspension Refer to printed prep instructions from your provider. (Patient not taking: Reported on 05/14/2022) 4000 mL 0 ? famotidine (PEPCID) 40 mg tablet Take 1 tablet by mouth once daily. (Patient not taking: No sig reported) 30 tablet 2 ? diphenhydramine HCl (UNISOM, DIPHENHYDRAMINE, ORAL) Take by mouth. (Patient not taking: No sig reported) ? ? ? ondansetron orally disintegrating (ZOFRAN ODT) 4 mg disintegrating tablet Take 1 tablet by mouth every 8 hours as needed for nausea/vomiting. DISSOLVE ON TONGUE (Patient not taking: No sig reported) 30 tablet 2 ? No current facility-administered medications for this visit. ? ? ALLERGIES: Environmental [Other] and Seasonal Allergies ? PERSONAL HISTORY: SOCIAL HISTORY Social History ? Tobacco Use ? Smoking status: Never ? Smokeless tobacco: Never Vaping Use ? Vaping Use: Never used Substance Use Topics ? Alcohol use: Not Currently ? ? Alcohol/week: 2.5 standard drinks ? ? Types: 1 Glasses of Wine (5oz) per week ? ? Comment: Seldom ? Drug use: No ? FAMILY HISTORY: FAMILY HISTORY FAMILY HISTORY Problem Relation Age of Onset ? Heart Mother ? ? arrhythmia ? Prostate Cancer Father 67 ? Diabetes Father ? ? No Known Problems Brother ? ? other (adopted brother) Brother ? ? No Known Problems Maternal Grandmother ? ? No Known Problems Maternal Grandfather ? ? Uterine Cancer Paternal Grandmother ? ? dx. 40s-50s ? Prostate Cancer Paternal Grandfather ? ? dx. 70s ? No Known Problems Son ? ? Colon Cancer Maternal Uncle ? ? dx. late 60s ? Ovarian cancer Paternal Aunt 58 ? Prostate Cancer Paternal Uncle 70 ? Prostate Cancer Paternal Uncle ? ? ? REVIEW OF SYMPTOMS: GENERAL: denies fevers or chills ENDOCRINOLOGY: has not been on steroids Cardiology : denies palpitations or chest pain Respiratory: denies SOB or cough Hematology: denies history of prolonged bleeding or easy bruising or VTE Allergy: Denies history of personal or family history of allergy to anesthesia ? PHYSICAL EXAMINATION: ? VITALS: Last menstrual period 02/13/2021, currently . ? GENERAL: The patient is well nourished, well hydrated in no acute distress. , The patient is oriented to time, place, and person. NECK: Supple. No lynphadenopathy, normal thyroid, no thyromegaly. LUNGS: Clear to auscultation bilaterally. no wheezes, rhonchi or rales HEART: Regular rate and rhythm, Normal heart sounds, and No murmurs or gallops ? IMPRESSION: Sterilization request ? PLAN: The risks/benefits/alternatives and personal involved for the planned laparoscopic bilateral salpingectomy were reviewed with the patient. Her questions were answered to her satisfaction and she desires to proceed. Consent was signed. I reviewed with her postop instructions and expectations. ? ? I have reviewed and updated past medical and surgical history, medications and allergies Assessment & Plan Assessment/Plan (1) Sterilization:
[2022-05-21] MEDS: Celecoxib 200 MG Capsule 400 MG PO (08:43)
[2022-05-21] MEDS: Acetaminophen 500 MG Tablet 1000 MG PO (08:44)
[2022-05-21 08:57] VITALS: BP 109/70; PULSE 68; RESP 16; TEMP 36.4; O2SAT 100; BMI 37.8
[2022-05-21] MEDS: Lactated Ringers 1,000 ML 15 ML IV (09:13)
[2022-05-21 09:23] LABS: Mean Corp Hgb Conc 34.1 g/dL (32-36); Mean Corpuscular Hgb 29.9 pg (27.0-32.0); Mean Corpuscular Volume 87.4 fL (81-99); Mean Platelet Vol. 10.5 fl (6.2-12.0); Platelet Count 281 K/mm3 (150-450); RBC Distribution Width CV 13.7 % (11.6-14.6); RBC Distribution Width SD 43.4 fl (35.1-43.9); Red Blood Count 4.69 M/mm3 (4.2-5.4); White Blood Count 9.5 K/mm3 (4.4-11.0)
--- NOTE | 2022-05-21 09:30 | FALS_PTH ---
PATIENT: MAYNOR FINNEGAN LOC: [facility] – [place] U#:[id number] AGE/SX: 36/F ROOM: RE05/21/[address]: Dr. Africa Wood MD : 1985 BED: DIS: 05/21/2022 SPEC #: [id number] RECD: 05/21/22 16:22 STATUS: NICOLETTE REJt #: [id number] NAEEM: 05/21/22 09:[address]: Africa Wood DEPT: SURGICAL PATHOLOGY RECD BY: Navya Stringer ENTERED: 05/22/22 07:52 SP TYPE: FALL TUBES OTHR DR: No Primary Care Phys Tissues: Fallopian tube Procedures: Surgery Specimen Level II HEADER OPERATION: Laparoscopic salpingectomy PRE-OP DIAGNOSIS: Sterilization TISSUE SUBMITTED: Bilateral fallopian tubes MICROSCOPIC DIAGNOSIS Bilateral fallopian tubes, salpingectomy: Bilateral fallopian tubes, no pathologic diagnosis. /SJ 05/25/22 MICROSCOPIC DESCRIPTION Slides are reviewed. GROSS DESCRIPTION Received in fixative is one container labeled with the patient's name and designated bilateral fallopian tubes. The specimen consists of bilateral fallopian tubes including fimbrial ends measuring 3.5 cm in length and 0.5 cm in diameter and 6 cm in length and 0.5 cm in diameter. The fallopian tubes are not identified as right or left. Sections reveal unremarkable cut surfaces. Subsurface Augmentee Elint Operator sections are submitted in two cassettes with each cassette containing one fallopian tube. / SJ:rg 05/22/2022 TC:4 CPT: 56358 x2
[2022-05-21 09:32] LABS: Prothrombin Time (Protime)PT. 12.5 SECONDS (11.7-14.9)
[2022-05-21 09:36] LABS: Internal QC Validated? YES +Cl - CLEAR BKGD; Pregnancy, Urine Negative Negative
[2022-05-21 09:41] LABS: AST(SGOT) 17 U/L (15-37); Alanine Aminotransfer ALT/SGPT 26 U/L (13-56); Albumin, Serum 3.8 g/dL (3.2-5.0); Alkaline Phosphatase 110 U/L (45-117); Bilirubin, Direct 0.15 mg/dL (0.00-0.30); Globulin 4.1 g/dL (2.2-4.2); Protein, Total 7.9 g/dL (6.4-8.2)
--- NOTE | 2022-05-21 10:08 | DCINST_ITS ---
Discharge Instructions Diet Discharge Diet: No restrictions Activity Discharge Activity: May Drive (05/22/22 as tolerated) Return to work on:: 05/25/22 May shower in (days): 1 May resume sexual activity in: No Restrictions Lifting Restrictions: 15 lbs x 5 days, no lifting > 30 lbs for 2 weeks Dressing / Incision Call your doctor if your incision/area has: Sudden Increased Bleeding, Increased Pain/ Swelling and Foul Smelling Discharge Call your doctor if you observe: Fever of 101 or Higher Cleanse incision/area with: Soap & Water (Your incisions have skin glue, it can get wet) Follow Up Care Please Follow Up With: Africa Wood MD When: 1-2 weeks if needed Test Results: Test results from this visit will be discussed in further detail at your follow- up appointment, if applicable. Discharge Plan Admission Primary Reason for Your Visit: Tubal sterilization Attending Provider: Africa Wood Primary Care Provider: Care PhysicianAide Primary Discharge Orders/Prescriptions Prescriptions: No Action Cholecalciferol (Vitamin D3) [Vitamin D3] 5,000 UNIT capsule 5,000 mg PO DAILY Dha 1 tab PO DAILY Colace 1 tab PO/SL DAILY PRN (Reason: Constipation) vitamin M39-cdykr acid 1 tab PO.IVFORM DAILY vitamin B6-vitamin E-magnesium 1 tab PO.IVFORM DAILY magnesium glycinate 100 mg Tablet 350 mg PO DAILY Referrals / Follow Up: Care Physician,No Primary [Primary Care Provider] - Disposition Disposition (needs filled in before D/C Order can be placed): Home, Self Care
[2022-05-21] MEDS: Bupivacaine 0.25% 30 ML Vial (10:31)
--- NOTE | 2022-05-21 10:33 | PCM.OPRPT ---
Problems Associated Problem List Diagnoses (1) Sterilization: Report of Operation Date of Procedure: 05/21/22 Pre-Operative Diagnosis: sterilization request Post-Operative Diagnosis: same Surgery/Procedure Performed:: laparoscopic bilateral salpingectomy Description of Surgical Findings:: normal, cervix uterus, tubes and ovaries, normal peritoneal cavity Surgeon: Africa Wood refrigeration service technician: None Type of Anesthesia: General Anesthesiologist: Sylvia Ramos Special Medications: none Specimen's removed: bilateral fallopian tubes Drains: none Estimated Blood Loss (mL): 5 Fluids Replaced: 400 Description of Procedure: The patient was taken to the operating room where she was prepped and draped in the dorsolithotomy position. A weighted speculum was placed in the vagina and the anterior lip of the cervix was grasped with a tenaculum. The Shawanda uterine manipulator was placed and the remainder of the instruments were removed from the vagina. Attention was turned to the abdomen. All port sites were infiltrated with 0.5% Marcaine before skin incisions were made. A 5 mm [intraumbilical] incision was made. The anterior abdominal wall was tented up with 2 towel clamps while a 5 mm blade less trocar and sleeve were [directly inserted]. Intraperitoneal placement was confirmed with the laparoscope. The pneumoperitoneum was created and the underlying abdominal contents were intact. The patient was placed in Trendelenburg. Right and left lower quadrant ports were placed under direct visualization lateral to the inferior epigastric vessels. The bowel was swept away and the above findings were noted. The LigaSure device was used to clamp seal and transect the antimesenteric portions of the right tube to the cornual insertion of the uterus. The tube was amputated from the uterus and the pedicles were all confirmed to be hemostatic. The same procedure was performed on the contralateral side. The specimens were brought out through a 5 mm port. The pedicles were again examined and found to be hemostatic. The lateral ports were removed under direct visualization and no active bleeding was noted. The pneumoperitoneum was released. The skin incisions were closed with Monocryl suture in a subcuticular fashion and skin glue. The vaginal instruments were removed and the vaginal sweep was completed by . The procedure was performed by me anderson. All sponge and needle counts were correct and the patient was taken to the recovery room in stable condition. Grafts/Implants Used: none Procedure Start Time: 10:18 Procedure Stop Time: 10:39 Complications none Admit VTE Documentation VTE Present on Admission: No VTE Mechan Device Prophylaxis: SCD's VTE Pharm Prophylaxis ordered?: No Reason prophylaxis not ordered:: Procedure Not Indicated
[2022-05-21 10:49] VITALS: BP 106/89; BP 109/70; PULSE 64; RESP 16; TEMP 36.3; O2SAT 92
[2022-05-21 11:00] VITALS: BP 101/64; BP 109/70; PULSE 46; RESP 16; O2SAT 99
[2022-05-21 11:15] VITALS: BP 105/66; BP 109/70; PULSE 48; RESP 16; O2SAT 99
[2022-05-21 11:30] VITALS: BP 109/70; BP 99/66; PULSE 46; RESP 16; TEMP 36.3; O2SAT 99
--- NOTE | 2022-05-21 12:45 | SUR.PHASEII ---
PT IS BREAST FEEDING VIA BREAST PUMP AT THIS TIME.
[2022-05-21 13:05] VITALS: BP 108/69; BP 109/70; PULSE 55; RESP 16; O2SAT 100
== END 2022-05-21 13:21 | disposition home or self-care (01) ==
LOC: SDC 08:19 → AC 08:19
PROVIDERS: Anesthesiology; Visit Provider Obstetrics & Gynecology
PROC: (CPT 58661; principal; 2022-05-21 09:15)
DX: Z30.2 Encounter for sterilization (principal); D69.3 Immune thrombocytopenic purpura; K58.9 Irritable bowel syndrome, unspecified; F41.9 Anxiety disorder, unspecified; F32.9 Major depressive disorder, single episode, unspecified; J45.990 Exercise induced bronchospasm; I73.00 Raynaud's syndrome without gangrene; E55.9 Vitamin D deficiency, unspecified; Z79.899 Other long term (current) drug therapy; Z79.82 Long term (current) use of aspirin; Z80.0 Family history of malignant neoplasm of digestive organs
CPT/HCPCS: 58661; 80076; 81025; 85027; 85610; 85730; 88302; J7120; J2405